=== PATIENT | female | born 1980 | race Caucasian/White ===

== ENCOUNTER 2020-06-10 21:06 | Emergency (ER) | payer MEDICAID ==
[~2020-06-10] VITALS: Ht 152.4 cm; Wt 80.7 kg
[2020-06-10 21:56] VITALS: BP 192/122
--- NOTE | 2020-06-10 22:05 | NUR ---
PT W/C TO BED 7.
--- NOTE | 2020-06-10 22:07 | NUR ---
ER PA ALEXANDRA EVALUATING PT AT BEDSIDE.
[2020-06-10] MEDS ORDERED: KETOROLAC 30 MG/ML VIAL IM ONE (22:10)
[2020-06-10] MEDS ORDERED: HYDROcodone/APAP 7.5/325 MG 1 TAB PO ONE (22:10)
[2020-06-10] MEDS ORDERED: ONDANSETRON 4 MG ODT PO ONE (22:10)
--- NOTE | 2020-06-10 22:35 | NUR ---
X-RAY AT BEDSIDE.
--- NOTE | 2020-06-10 22:35 | NUR ---
Ace martinez in [facility] - 06/10/20 at 2236 by MEDLuis SANDRA AT BEDSIDE
--- NOTE | 2020-06-10 22:55 | NUR ---
ERPA AT BEDSIDE FOR RE-EVALUATION
--- NOTE | 2020-06-10 23:46 | NUR ---
EMT AT BEDSIDE
--- NOTE | 2020-06-11 00:04 | NUR ---
PTS LEFT KNEE WAS PLACED IN A KNEE IMOBOLIZER. PTS PMSC WNL. PT WAS ALSO GIVEN CRUTCHES. PT SHOWED GOOD USE OF CRUTCHES.
[2020-06-11 00:18] VITALS: BP 192/122
--- NOTE | 2020-06-11 00:18 | NUR ---
Patient discharged with v/s stable. Written and verbal after care instructions given and explained. Patient alert, oriented and verbalized understanding of instructions. Ambulatory with steady gait. All questions addressed prior to discharge. ID band removed. Patient advised to follow up with PMD. Rx of NORCO, & IBUPROFEN given. Patient educated on indication of medication including possible reaction and side effects. Opportunity to ask questions provided and answered.
== END 2020-06-11 00:18 | disposition home or self-care (01) ==
LOC: MED 21:06
DX: S86.912A Strain of unspecified muscle(s) and tendon(s) at lower leg level, left leg, initial encounter (principal); Z91.010 Allergy to peanuts; W19.XXXA Unspecified fall, initial encounter; Y93.02 Activity, running; Y92.89 Other specified places as the place of occurrence of the external cause; Y99.8 Other external cause status
CPT/HCPCS: 73562; 96372; 99283; J1885; Q0162